=== PATIENT | male | born 1990 | race African-American/Black ===

== ENCOUNTER 2017-08-15 20:22 | Emergency (ER) | payer SELFPAY ==
[~2017-08-15] VITALS: Ht 185.4 cm; Wt 81.6 kg
[2017-08-15 21:30] VITALS: BP 132/76
[2017-08-15] MEDS ORDERED: ACETAMINOPHEN/CODEINE#3 (300/30mg) TAB PO ONE (21:30)
== END 2017-08-15 21:46 | disposition home or self-care (01) ==
LOC: ER 20:22
DX: K08.89 Other specified disorders of teeth and supporting structures (principal); B99.9 Unspecified infectious disease; F11.20 Opioid dependence, uncomplicated